=== PATIENT | female | born 1975 | race Caucasian/White ===

== ENCOUNTER 2017-02-07 11:07 | Observation (INO) | payer OTHER ==
[2017-02-07] MEDS ORDERED: NS 1,000 ML IV ONE (11:31)
--- NOTE | 2017-02-07 11:45 | PDGENHP ---
History & Physical Chief Complaint: Palpitations History of Present Illness: SVT terminated with diltiazem in the ED Pertinent Past, Social, Family History: none Relevant Physical Exam: S1S2 RRR. CTA. AO x 3 Cardiorespiratory Assessment: 41 F with cardizem sensitive SVT, here for an ablation procedure. All ? were answered. She is a flight mechanic, have advised to walk q 45 min for the first 6 weeks post ablation to reduce risk of DVT
[2017-02-07 12:31] LABS: % IMMATURE GRANULYOCYTES 0.4 % (0.0-1.1); ABSOLUTE IMMATURE GRANULOCYTES 0.03 10^3/uL (0.00-0.10); ADD DIFF? NO; ADD MORPH? NO; ADD SCAN? NO; ATYPICAL LYMPHOCYTE FLAG 30 (0-99); FRAGMENT RBC FLAG 0 (0-99); HEMATOCRIT 42.2 % (38.0-47.0); HEMOGLOBIN 13.9 g/dL (12.6-16.3); LEFT SHIFT FLG 0 (0-99); LIPEMIA HEMOLYSIS FLAG 80 (0-99); MEAN CELL HEMOGLOBIN 30.1 pg (27.9-34.1); MEAN CELL HEMOGLOBIN CONCENTR. 32.9 g/dL (32.4-36.7); MEAN CELL VOLUME 91.3 fL (81.5-99.8); MEAN PLATELET VOLUME 10.9 fL (8.7-11.7); PLATELET CLUMPS FLAG 10 (0-99); PLATELET COUNT 262 10^3/uL (150-400); RED BLOOD CELL COUNT 4.62 10^6/uL (4.18-5.33); RED CELL DISTRIBUTION WIDTH 12.8 % (11.5-15.2)
[2017-02-07] MEDS ORDERED: MIDAZOLAM 2 MG/2 ML VIAL IVP ONE (12:35)
[2017-02-07] MEDS ORDERED: SCOPOLAMINE HYDROBROMIDE 1 MG/3 DAYS PATCH TD ONE (12:35)
--- NOTE | 2017-02-07 12:36 | PDANEPAE ---
ANE History of Present Illness Patient presents for SVT ablation ANE Past Medical History - Pulmonary History Hx Sleep Apnea: No ANE Review of Systems - Exercise capacity Exercise capacity: >=4 METS ANE Patient History - Allergies Allergies/Adverse Reactions: No Allergies [NKA] Allergy (Verified 02/01/17 13:26) - Home Medications Home medications: home medication list seen and reviewed Home Medications: Herbals/Supplements -Info Only 1 ea PO DAILY 02/07/17 [Last Taken Unknown] Multivitamins [Multivitamin (*)] 1 tab PO DAILY 02/07/17 [Last Taken 02/06/17 08 :00] Norethindrone AC-Eth Estradiol [Erinn 1.5 mg-30 Mcg Tablet] 1 tab PO HS [Last Taken 02/05/17 20:00] [place]-3 Fatty Acids [Fish Oil 1000 mg (*)] 1,000 mg PO DAILY 02/07/17 [Last Taken 02/06/17 08:00] - NPO status NPO Status: no food or drink >8 hours - Anes Hx Anes Hx: no prior problems - Smoking Hx Smoking Status: Never smoked ANE Labs/Vital Signs - Labs Result Diagrams: 02/07/17 11:45 02/07/17 11:45 - Vital Signs Height: 165.1 cm Weight: 70.3 kg ANE Physical Exam - Airway Mallampati Score: Class 1 Mouth exam: normal dental/mouth exam - Pulmonary Pulmonary: no respiratory distress - Cardiovascular Cardiovascular: regular rate and rhythym - ASA Status ASA Status: II ANE Anesthesia Plan Anesthesia Plan: general endotracheal anesthesia (RBA discussed)
[2017-02-07 12:37] LABS: INR 0.97 (0.83-1.16); PROTIME(PATIENT) 12.8 SEC (12.0-15.0)
[2017-02-07 12:38] LABS: APTT 24.7 SEC (23.0-38.0)
[2017-02-07 12:40] LABS: ANION GAP 10 mEq/L (8-16); CARBON DIOXIDE 23 mEq/l (22-31); CHLORIDE 104 mEq/L (97-110); CREATININE 0.9 mg/dL (0.6-1.0); GLOMERULAR FILTRATION RATE > 60; GLUCOSE 82 mg/dL (70-100); MAGNESIUM 1.9 mg/dL (1.6-2.3); POTASSIUM 3.9 mEq/L (3.5-5.2); SODIUM 137 mEq/L (134-144)
[2017-02-07] MEDS ORDERED: HEPARIN 10,000 UNIT/10 ML MDV ONE (12:40)
[2017-02-07] MEDS ORDERED: LIDOCAINE 1% 300 MG/30 ML SDV ONE ×2 (12:40→15:26)
[2017-02-07] MEDS ORDERED: MIDAZOLAM 2 MG/2 ML VIAL ONE (12:41)
[2017-02-07] MEDS ORDERED: ISOPROTERENOL HCL/D5W 0.2 MG/50 ML BAG IV ONE (12:41)
[2017-02-07] MEDS ORDERED: BUPIVACAINE 0.5% 30 ML SDV ONE (12:41)
[2017-02-07] MEDS ORDERED: fentaNYL 100 MCG/2 ML INJ ONE ×2 (12:55→14:48)
[2017-02-07] MEDS ORDERED: PROPOFOL 200 MG/20 ML VIAL ONE (12:55)
[2017-02-07] MEDS ORDERED: PROPOFOL/EMULSION 500 MG/50 ML BOTTLE IV ONE ×2 (12:59→14:21)
[2017-02-07] MEDS ORDERED: ONDANSETRON 4 MG/2 ML VIAL ONE (13:00)
[2017-02-07] MEDS ORDERED: DEXAMETHASONE 4 MG/ML VIAL ONE (13:00)
[2017-02-07] MEDS ORDERED: PHENYLEPHRINE HCL 100 MCG/ML SYR ONE (13:37)
[2017-02-07] MEDS ORDERED: ROCURONIUM 50 MG/5 ML VIAL ONE ×2 (13:53→15:06)
[2017-02-07] MEDS ORDERED: SUGAMMADEX SODIUM 200 MG/2 ML VIAL IVP ONE (14:39)
[2017-02-07] MEDS ORDERED: ACETAMINOPHEN 325 MG TAB PO PRN (15:31)
[2017-02-07] MEDS ORDERED: ONDANSETRON 4 MG/2 ML VIAL IVP PRN ×2 (15:31→15:50)
--- NOTE | 2017-02-07 15:36 | EPPROC ---
Electrophysiology Procedure Note: ELECTROPHYSIOLOGIC STUDY AND CATHETER MEDIATED ABLATION OF SLOW/FAST AV GAGANDEEP REENTRY TACHYCARDIA PROCEDURES PERFORMED: 01861-52 EP evaluation with RA/RV/LA pace/record, with arrhythmia induction 43335-60 EP evaluation with RA/RV pace record, insert/reposition catheter, with arrhythmia induction [id number] Intracardiac catheter ablation, SVT arrhythmogenic focus 88742 3D mapping Fluoroscopy INDICATION: SVT PROCEDURE: Catheters & Anesthesia: The patient arrived in the Electrophysiology Laboratory in the fasting state. The right clavicular region, right groin, and left groin area were prepped and draped in the usual sterile manner. Anesthesiologist Dr. Winters administered general anesthesia. Appropriate non-invasive blood pressure, pulse oximetry and end-tidal CO2 monitoring was established. All catheters were placed percutaneously using the modified Seldinger technique , and advanced into position under fluoroscopic guidance. One #6 Taiwanese hexapolar non-deflectable electrode catheter was inserted into the right atrial appendage via the left femoral vein (2mm spacing; except the proximal ring which was 25cm from the tip used for unipolar recordings). One #7 Taiwanese deflectable octapolar electrode catheter was advanced to the His-bundle position via the left femoral vein (2mm spacing). One #7 [place]ese deflectable quadrapolar catheter was advanced to the anteroseptal right ventricle via the right femoral vein. One #7 Taiwanese deflectable catheter with 10 pairs of electrodes was placed via the right femoral vein into the coronary sinus. Heparin was given to keep ACT > 200 s. Programmed stimulation was performed from the right atrium, right ventricle and coronary sinus (left atrium). Parahisian pacing demonstrated constant H-A interval with changing V-A intervals and stimulus-A intervals during capture and loss of capture of proximal RBB proving retrograde conduction over AV node. AVNRT was induced easily during infusion of isoproterenol 2-4 mcg/min. Ventricular extrastimuli delivered during tachycardia without altering antegrade His bundle activation did not advance next atrial potential, indicating that the tachycardia was not utilizing an accessory pathway for retrograde conduction. VA interval was 30 ms. Post entrainment of the tachycardia from the ventricle, there was VAHV response. During change in TCL HH interval preceded AA interval, moreover SVT started with long AH interval. Mapping of the right atrium and coronary sinus during AVNRT identified earliest atrial activation above the tendon of Kia at a level slightly posterior to the level of the His bundle, consistent with retrograde conduction over the fast AV gagandeep pathway. A #8 Taiwanese deflectable quadrapolar electrode catheter (2mm-5mm-2mm spacing) with 4 mm tip electrode and sensor for the 3D mapping Carto system was advanced to the right atrium. 3 D mapping of the inter-atrial septum and coronary sinus was performed and location of the AV node was marked. A SL2 sheath was used. RF applications were delivered to the region between the tricuspid annulus and the coronary sinus ostium, at the level of the upper edge of the coronary sinus ostium. Radiofrequency applications were also delivered along the roof of the proximal coronary sinus. Junctional rhythm occurred during all of the RF applications. During bolus doses of isoproterenol 4 mcg SVT was harder to induce but still inducible. 8 cryolesions, total 1724 s were placed at the anteroapical edge of CS and low midseptal TA. This rendered AVNRT non inducible. The catheters were removed. The long sheath was changed to a short 9 Fr sheath. The patient was transferred to the cardiovascular holding area in stable condition. Vascular access sheaths were removed in the holding area. There were no apparent complications. Results: A. Spontaneous Intervals: Pre ablation SCL 705 ms AH 80 ms HV 45 ms Post ablation SCL 640 ms AH 70 ms HV 45 ms B. Antegrade AV gagandeep function (decremental pacing) Pre ablation FPERP 460 ms SPERP 350 ms WBB CL 340 ms Post ablation FPERP 330 ms WBB CL 320 ms C. Retrograde AV gagandeep function (decremental pacing) Pre ablation FPERP 360 ms WBB CL 350 ms D. Arrhythmias: Sustained slow/fast AVNRT Cycle length 340 ms, AH interval 280 ms, FINK interval 60 ms VA interval 30 ms CONCLUSIONS 1. 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 ( Slow/fast AVNRT). 2. Successful ablation (RF + cryo) of the slow AV gagandeep pathway with elimination of 1:1 antegrade conduction over the slow AV gagandeep pathway, all retrograde conduction over the slow AV gagandeep pathway and the inducibility of AVNRT. 3. No complications. Patient Problems: Problems Problem Status Onset Supraventricular tachycardia Acute
--- NOTE | 2017-02-07 15:49 | POSTANESTH ---
Post Anesthetic Evaluation Cardiovascular Status: Normal, Stable Respiratory Status: Normal, Stable Level of Consciousness/Mental Status: Can Participate in Eval Pain Control: Adequate, Prn Tx Ordered Nausea/Vomiting Control: Adequate, Prn Tx Ordered Complications Possibly Related to Anesthesia: None Noted
[2017-02-07] MEDS ORDERED: fentaNYL 100 MCG/2 ML INJ IVP PRN (15:50)
[2017-02-07] MEDS ORDERED: NALOXONE HCL 0.4 MG/ML INJ IVP PRN (15:50)
[2017-02-07] MEDS ORDERED: ATROPINE SULFATE 1 MG/10 ML SYR ONE (15:52)
--- NOTE | 2017-02-07 15:58 | CPEKG ---
Heart Rate: 64 RR Interval: 938 P-R Interval: 172 QRSD Interval: 74 QT Interval: 420 QTC Interval: 434 P [place]: 61 QRS [place]: 31 T Wave [place]: 36 EKG Severity - NORMAL ECG - EKG Impression: SINUS RHYTHM Electronically Signed By: Brooklyn Whalen 07-Feb-2017 18:03:16
[2017-02-07 17:12] LABS: ANION GAP 11 mEq/L (8-16); CALCIUM 8.2 mg/dL (8.5-10.4); CARBON DIOXIDE 20 mEq/l (22-31); CHLORIDE 108 mEq/L (97-110); CREATININE 0.8 mg/dL (0.6-1.0); GLOMERULAR FILTRATION RATE > 60; GLUCOSE 105 mg/dL (70-100); MAGNESIUM 1.9 mg/dL (1.6-2.3); POTASSIUM 3.8 mEq/L (3.5-5.2); SODIUM 139 mEq/L (134-144)
[2017-02-08 04:56] LABS: ANION GAP 8 mEq/L (8-16); CALCIUM 8.7 mg/dL (8.5-10.4); CARBON DIOXIDE 21 mEq/l (22-31); CHLORIDE 107 mEq/L (97-110); CREATININE 0.9 mg/dL (0.6-1.0); GLOMERULAR FILTRATION RATE > 60; GLUCOSE 92 mg/dL (70-100); POTASSIUM 4.3 mEq/L (3.5-5.2); SODIUM 136 mEq/L (134-144)
[2017-02-08 05:04] LABS: INR 1.07 (0.83-1.16); PROTIME(PATIENT) 13.8 SEC (12.0-15.0)
[2017-02-08 06:02] LABS: % IMMATURE GRANULYOCYTES 0.4 % (0.0-1.1); ABSOLUTE IMMATURE GRANULOCYTES 0.04 10^3/uL (0.00-0.10); ADD DIFF? NO; ADD MORPH? NO; ADD SCAN? NO; ATYPICAL LYMPHOCYTE FLAG 20 (0-99); FRAGMENT RBC FLAG 40 (0-99); HEMATOCRIT 40.1 % (38.0-47.0); HEMOGLOBIN 13.1 g/dL (12.6-16.3); LEFT SHIFT FLG 0 (0-99); LIPEMIA HEMOLYSIS FLAG 80 (0-99); MEAN CELL HEMOGLOBIN 30.3 pg (27.9-34.1); MEAN CELL HEMOGLOBIN CONCENTR. 32.7 g/dL (32.4-36.7); MEAN CELL VOLUME 92.8 fL (81.5-99.8); MEAN PLATELET VOLUME 10.5 fL (8.7-11.7); PLATELET CLUMPS FLAG 10 (0-99); PLATELET COUNT 259 10^3/uL (150-400); RED BLOOD CELL COUNT 4.32 10^6/uL (4.18-5.33); RED CELL DISTRIBUTION WIDTH 12.6 % (11.5-15.2)
[2017-02-08 06:18] LABS: CREATINE KINASE-MB FRACTION 2.74 ng/mL (0.00-3.19); TROPONIN I 0.751 ng/mL (0.000-0.034)
[2017-02-08 07:19] VITALS: BP 110/74; PULSE 73; RESP 18; TEMP 97.5; O2SAT 94
--- NOTE | 2017-02-08 08:39 | CPEKG ---
Heart Rate: 78 RR Interval: 769 P-R Interval: 176 QRSD Interval: 70 QT Interval: 376 QTC Interval: 429 P [place]: 59 QRS [place]k: 42 T Wave [place]: 33 EKG Severity - NORMAL ECG - EKG Impression: SINUS RHYTHM Electronically Signed By: Brooklyn Whalen 08-Feb-2017 08:50:11
[2017-02-08] MEDS ORDERED: ASPIRIN 81 MG CHEWABLE TAB PO SCH (09:00)
--- NOTE | 2017-02-08 09:01 | CPEKG ---
Heart Rate: 63 RR Interval: 952 P-R Interval: 176 QRSD Interval: 74 QT Interval: 408 QTC Interval: 418 P [place]: 64 QRS [place]: 57 T Wave [place]: 13 EKG Severity - NORMAL ECG - EKG Impression: SINUS RHYTHM Electronically Signed By: Isiah Hull 08-Feb-2017 15:06:37
--- NOTE | 2017-02-08 10:30 | ECHO ---
[id number] + + [address] : : [place] [address] : : [phone] + Adult Echocardiographic Report + ---+ :Name: Sidney ENGLISH Date: 02/08/2017 08:37 AM : : Hospital Admission Number: [id number] Location: 218: :: 1975 Gender: Female Height: 65 in : :Age: 41 yrs Race: WH Weight: 154 lb : :Reason For Study: F/U post EP study : : BSA: 1.8 meters2 : + ---+ MMode/2D Measurements & Calculations IVSd: 0.48 cm LVIDd: 4.6 cm FS: 39.1 % Ao root diam: LVPWd: 0.66 cm LVIDs: 2.8 cm EDV(Teich): 3.1 cm 94.9 ml LA dimension: ESV(Teich): 2.7 cm 28.8 ml EF(Teich): 69.7 % LVLd ap4: 8.2 cm SV(MOD-sp4): EDV(MOD-sp4): 52.0 ml 72.0 ml LVLs ap4: 6.3 cm ESV(MOD-sp4): 20.0 ml EF(MOD-sp4): 72.2 % Normal Measurement Values: + + :LVIDd (3.5-5.7cm) IVSd (0.6-1.1cm) LVPWd (0.6-1.1cm) Aortic Root (2.0-3.7cm)Left Atrium (1.5-4.0cm): :LV Vol(d) (76-115ml) LV Vol(s) (29-48ml) Ejec Fraction (50-65%)PV Conner (0.6- 1.2m/s) TV Conner (0.4-1.0m/s) : :MV E Conner (0.8-1.0m/s)MV A Conner (0.3-1.0m/s)LVOT Conner (0.7-1.2m/s) Asc Ao Conner ( 0.9-1.8m/s) : + + Doppler Measurements & Calculations MV E max conner: 98.2 cm/sec Ao V2 max: 124.0 cm/sec TR max conner: 251.0 cm/sec MV A max conner: 57.8 cm/sec Ao max P.2 mmHg TR max P.2 mmHg MV E/A: 1.7 RAP systole: 5.0 mmHg RVSP(TR): 30.2 mmHg Left Ventricle The left ventricle is normal in size. There is normal left ventricular wall thickness. Left ventricular systolic function is normal. Ejection Fraction = 65-70%. No regional wall motion abnormalities noted. Right Ventricle The right ventricle is normal in size and function. Atria The left atrial size is normal. Right atrial size is normal. The interatrial septum is intact with no evidence for an atrial septal defect. Mitral Valve The mitral valve is normal in structure and function. There is no evidence of mitral valve prolapse. There is no mitral valve stenosis. There is trace mitral regurgitation. Tricuspid Valve Normal tricuspid valve. There is mild tricuspid regurgitation. Aortic Valve The aortic valve is trileaflet. The aortic valve opens well. There is no aortic stenosis. There is no aortic insufficiency. Pulmonic Valve The pulmonic valve is normal in structure and function. There is no pulmonic valvular regurgitation. Great Vessels The aortic root is normal size. Pericardium/Pleural There is no pericardial effusion. Conclusion A complete two-dimensional transthoracic echocardiogram was performed (2D, M-mode, Doppler and color flow Doppler). Left ventricular systolic function is normal. Ejection Fraction = 65-70%. There is trace mitral regurgitation. There is mild tricuspid regurgitation. There is no pericardial effusion. Final Reading Physician: Daksha Gramajo signed on 02/08/2017 10:29 AM Ordering Physician: Isiah Hull Performed By: Jaqui Porter RDCS
--- NOTE | 2017-02-08 13:01 | GDS ---
[f rep st] DISCHARGE SUMMARY DISCHARGE DIAGNOSIS: Supraventricular tachycardia, status post AVNRT ablation. BRIEF HISTORY: The patient was referred to Dr. Hull by Dr. Vital for SVT. This has been occurring for at least 5 years with increasing episodes recently. The last episode required hospital ER visit with MORIS Espino for conversion. HOSPITAL COURSE: Dr. Hull performed RF and cryo ablation of the slow AV ce pathway. Post ablation, there was no inducible AVNRT. She has done well overnight. She denies any chest pain, pressure, tightness, or shortness of breath. She denies any discomfort at his groin sites. TESTING DONE: 12-lead EKG demonstrates sinus rhythm, no ST-T wave changes. Echocardiogram demonstrates ejection fraction of 65% to 70%. There is trace MR , mild TR, and no pericardial effusion. LABORATORIES: WBC is 9.75, hemoglobin 13.1, hematocrit 40, platelets 259. PT is 13.8, INR is 1.07. Sodium 136, potassium 4.3, chloride 107, bicarb 21, BUN 10, creatinine 0.9, glucose 92. CK 98, CK-MB fraction 2.74, troponin is 0.751. PHYSICAL EXAMINATION: VITAL SIGNS: Blood pressure is 110/74, pulse is 73, respirations 18, temperature 36.4, O2 saturation on room air is 94%. GENERAL: She is alert and oriented sitting up in bed, in no acute distress. CARDIAC: Regular rate and rhythm without murmur, rub, or gallop. LUNGS: Clear to auscultation. ABDOMEN: Soft, and nontender. Groin sites are without hematoma , ecchymosis, or bleeding. EXTREMITIES: Warm, no discoloration. No lower extremity edema. +2 pedal pulses bilaterally. DISCHARGE MEDICATIONS: Please see discharge medication reconciliation. Of note , she was instructed to hold her control pills for the next 6 weeks and also take 81 mg of aspirin for the next 6 weeks to decrease the risk of blood clots. DISCHARGE INSTRUCTIONS: She was given verbal activity restrictions including no heavy lifting or vigorous activity for 1 week. FOLLOWUP: She has a followup scheduled on March 02 at 10:[address] Hull. /[id number]/MODL MTDD
== END 2017-02-08 11:12 | disposition home or self-care (01) ==
LOC: FSGY 11:07 → F2W 15:31
PROVIDERS: ADMIT Internal Medicine Cardiovascular Disease; ATTEND Internal Medicine Cardiovascular Disease
PROC: 02K83ZZ Map Conduction Mechanism, Percutaneous Approach (ICD-10-PCS; principal; 2017-02-07)
PROC: 4A023FZ Measurement of Cardiac Rhythm, Percutaneous Approach (ICD-10-PCS; principal; 2017-02-07)
PROC: 02583ZZ Destruction of Conduction Mechanism, Percutaneous Approach (ICD-10-PCS; principal; 2017-02-07)
PROC: 5A1213Z Performance of Cardiac Pacing, Intermittent (ICD-10-PCS; principal; 2017-02-07)
DX: I47.1 Supraventricular tachycardia (principal)
CPT/HCPCS: 93005; 93306; 93613; 93621; 93623; 93653; C1730; C1732; G0378; C1731; C1733; C1893; J0461; J1100; J1644; J2250; J2370; J2405; J2704; J3010